=== PATIENT | female | born 1940 | race Caucasian/White ===

== ENCOUNTER 2017-09-24 10:53 | Emergency (ER) | payer MEDICARE, OTHER ==
[~2017-09-24] VITALS: Ht 154.9 cm; Wt 113.4 kg
[~2017-09-24 10:53] MED LIST: ALEN70 PO; CHOL10002 PO; FISH1000 PO; FURO40 PO; GLUCOSAMINE MSM PO; LOSA25 PO; METO100ER PO; OMEP20ER PO; POTCHL10ER PO; PRENATA CHEWAB1 EACH PO; TYKERB PO; WARF4 PO; WARF5 PO
[2017-09-24 12:42] LABS: International Normalized Ratio 2.32; Prothrombin Time Results 22.8 Sec (9.7-11.5)
== END 2017-09-24 16:34 | disposition home or self-care (01) ==
LOC: ER 10:53
PROVIDERS: Physician Assistant
DX: R04.0 Epistaxis (principal); Z88.5 Allergy status to narcotic agent; Z88.8 Allergy status to other drugs, medicaments and biological substances; Z79.899 Other long term (current) drug therapy; Z79.891 Long term (current) use of opiate analgesic
CPT/HCPCS: 85610; 99283

== ENCOUNTER → 2017-12-03 | Outpatient (CLI) | payer MEDICARE, OTHER ==
[2017-12-03 15:28] LABS: International Normalized Ratio 1.84; Prothrombin Time Results 18.3 Sec (9.7-11.5)
== END | disposition home or self-care (01) ==
LOC: LAB HH 15:04 → LAB SHORT 15:04
PROVIDERS: Internal Medicine
DX: Z79.01 Long term (current) use of anticoagulants (principal); Z51.81 Encounter for therapeutic drug level monitoring; I48.0 Paroxysmal atrial fibrillation; C64.1 Malignant neoplasm of right kidney, except renal pelvis
CPT/HCPCS: 85610